=== PATIENT | female | born 1960 | race Caucasian/White ===

== ENCOUNTER 2020-05-20 19:36 | Emergency (ER) | payer SELFPAY ==
--- NOTE | 2020-05-20 20:17 | EDPHYS ---
Physician Documentation [facility] Name: Qi Berry Age: 59 yrs Sex: Female : 1960 Arrival Date: 05/20/2020 Time: 19:38 Bed 20 Private MD: ED Physician Salvador Brinoes HPI: 05/20 20:11 This 59 yrs old Female presents to ER via Ambulatory with complaints of Chest chela pain from fall. 20:11 The patient or guardian reports chest pain that is located primarily in the anterior chela chest wall. Onset: The symptoms/episode began/occurred 4 day(s) ago. The pain does not radiate. Associated signs and symptoms: Pertinent positives:. The chest pain is described as aching, sharp. Duration: The patient or guardian reports a single episode, that is still ongoing. Modifying factors: The symptoms are alleviated by remaining still, the symptoms are aggravated by deep breath, movement, palpation of area, twisting torso. Severity of pain: At its worst the pain was mild moderate in the emergency department the pain is unchanged. The patient has not experienced similar symptoms in the past. Historical: - Allergies: 19:45 No Known Allergies; ll1 - PSHx: 19:45 tubal ; ll1 - Immunization history:: Flu vaccine is not up to date. - Social history:: Smoking status: Patient denies any tobacco usage or history of. Patient/guardian denies using alcohol, street drugs, tobacco products. - Family history:: not pertinent. ROS: 20:11 Constitutional: Negative for fever, chills, and weight loss, Eyes: Negative for injury, chela pain, redness, and discharge, ENT: Negative for injury, pain, and discharge, Neck: Negative for injury, pain, and swelling, Cardiovascular: Negative for chest pain, palpitations, and edema, Respiratory: Negative for shortness of breath, cough, wheezing, and pleuritic chest pain, Abdomen/GI: Negative for abdominal pain, nausea, vomiting, diarrhea, and constipation, Back: Negative for injury and pain, : Negative for injury, bleeding, discharge, and swelling, MS/Extremity: Negative for injury and deformity, Skin: Negative for injury, rash, and discoloration, Neuro: Negative for headache, weakness, numbness, tingling, and seizure, Psych: Negative for depression, anxiety, suicide ideation, homicidal ideation, and hallucinations, Allergy/Immunology: Negative for hives, rash, and allergies, Endocrine: Negative for neck swelling, polydipsia, polyuria, polyphagia, and marked weight changes, Hematologic/Lymphatic: Negative for swollen nodes, abnormal bleeding, and unusual bruising. 20:11 Cardiovascular: Positive for chest wall pain. Exam: 20:11 Constitutional: This is a well developed, well nourished patient who is awake, alert, chela and in no acute distress. Head/Face: Normocephalic, atraumatic. Eyes: Pupils equal round and reactive to light, extra-ocular motions intact. Lids and lashes normal. Conjunctiva and sclera are non-icteric and not injected. Cornea within normal limits. Periorbital areas with no swelling, redness, or edema. ENT: Nares patent. No nasal discharge, no septal abnormalities noted. Tympanic membranes are normal and external auditory canals are clear. Oropharynx with no redness, swelling, or masses, exudates, or evidence of obstruction, uvula midline. Mucous membranes moist. Neck: Trachea midline, no thyromegaly or masses palpated, and no cervical lymphadenopathy. Supple, full range of motion without nuchal rigidity, or vertebral point tenderness. No Meningismus. Cardiovascular: Regular rate and rhythm with a normal S1 and S2. No gallops, murmurs, or rubs. Normal PMI, no JVD. No pulse deficits. Respiratory: Lungs have equal breath sounds bilaterally, clear to auscultation and percussion. No rales, rhonchi or wheezes noted. No increased work of breathing, no retractions or nasal flaring. Abdomen/GI: Soft, non-tender, with normal bowel sounds. No distension or tympany. No guarding or rebound. No evidence of tenderness throughout. Back: No spinal tenderness. No costovertebral tenderness. Full range of motion. Skin: Warm, dry with normal turgor. Normal color with no rashes, no lesions, and no evidence of cellulitis. MS/ Extremity: Pulses equal, no cyanosis. Neurovascular intact. Full, normal range of motion. Neuro: Awake and alert, GCS 15, oriented to person, place, time, and situation. Cranial nerves II-XII grossly intact. Motor strength 5/5 in all extremities. Sensory grossly intact. Cerebellar exam normal. Normal gait. Psych: Awake, alert, with orientation to person, place and time. Behavior, mood, and affect are within normal limits. 20:11 Chest/axilla: Inspection: normal, no acute changes, Palpation: tenderness, that is mild, that is moderate, of the anterior aspect of right upper chest, anterior aspect of left upper chest, mid-sternal area, right breast and left breast, Axilla: are normal, no acute changes, Breasts: are normal, no acute changes, Lymph nodes: lymphadenopathy is not appreciated. 20:42 ECG was reviewed by the Attending Physician. [facility] Vital Signs: 19:43 BP 153 / 96; Pulse 81; Resp 17; Temp 97.1; Pulse Ox 99% ; Pain 10/10; ll1 MDM: 19:47 Patient medically screened. [facility] 20:11 Data reviewed: vital signs, nurses notes, EKG, radiologic studies, plain films. [facility] 20:17 Differential diagnosis: Blunt Chest Trauma Chest Wall Contusion Chest Wall Injury chela Pleural Effusion Pneumothorax Pulmonary Contusion Rib Fracture. Data interpreted: bus driver/monitor: rate is 81 beats/min, rhythm is normal sinus rhythm, Pulse oximetry: is not applicable for this patient encounter. Test interpretation: by ED physician or midlevel provider: ECG, plain radiologic studies. Counseling: I had a detailed discussion with the patient and/or guardian regarding: the historical points, exam findings, and any diagnostic results supporting the discharge/admit diagnosis, lab results, radiology results, the need for outpatient follow up, Medication response: Toradol partially relieved the patient's pain. Response to treatment: the patient's symptoms have markedly improved after treatment. ED course: explained results to the patient, with rest , take meds and follow up. . 05/20 20:11 Order name: Chest Pa And Lat (2 Views) XRAY [facility] 05/20 20:11 Order name: EKG; Complete Time: 20:12 [facility] 05/20 20:11 Order name: EKG - Nurse/Tech; Complete Time: 20:43 [facility] EC:42 Rate is 69 beats/min. Rhythm is regular. QRS [place] is Normal. [place] interval is normal. QRS chela interval is normal. QT interval is normal. No Q waves. T waves are Normal. No ST changes noted. Clinical impression: Normal ECG and No evidence of ischemia. Interpreted by me. Reviewed by me. Administered Medications: 20:41 Drug: TORadol 60 mg Route: IM; Site: right vastus lateralis; vc 20:55 Follow up: Response: No adverse reaction vc 20:41 Drug: [place] (7.5 mg-325 mg) 1 tabs Route: PO; vc 20:55 Follow up: Response: No adverse reaction vc Disposition: 05/20/20 20:16 Discharged to Home. Impression: Chest pain, unspecified - chest wall, Fall due to bumping against object. - Condition is Stable. - Discharge Instructions: Chest Wall Pain, Chest Wall Pain, [id number]. - Prescriptions for Ibuprofen 600 mg Oral Tablet - take 1 tablet by ORAL route every 8 hours As needed take with food; 21 tablet. Tylenol- Codeine #3 300-30 mg Oral Tablet - take 2 tablets by ORAL route every 6 hours As needed; 24 tablet. - Medication Reconciliation Form, Thank You Letter, Antibiotic Education, Prescription Opioid Use form. - Follow up: Private Physician; When: 5 - 6 days; Reason: Recheck today's complaints, Continuance of care, Re-evaluation by your physician. - Problem is new. - Symptoms have improved. Signatures: Dispatcher [employer] EDMS Salvador Briones MD MD cha Calcote, Vanessa, RN RN Emilia Carey RN RN ll1 Corrections: (The following items were deleted from the chart) 21:08 20:16 05/20/2020 20:16 Discharged to Home. Impression: Chest pain, unspecified - chest vc wall; Fall due to bumping against object. Condition is Stable. Forms are Medication Reconciliation Form, Thank You Letter, Antibiotic Education, Prescription Opioid Use. Follow up: Private Physician; When: 5 - 6 days; Reason: Recheck today's complaints, Continuance of care, Re-evaluation by your physician. Problem is new. Symptoms have improved. chela
--- NOTE | 2020-05-20 20:17 | ER ---
Nurse's Notes [facility] Name: Qi Berry Age: 59 yrs Sex: Female : 1960 Arrival Date: 05/20/2020 Time: 19:38 Bed 20 Private MD: Diagnosis: Chest pain, unspecified-chest wall;Fall due to bumping against object Presentation: 05/20 19:43 Chief complaint: Patient states: States she fell 9 days ago. Board broke underneath her ll1 feet. States her right elbow hit a post, and "ketan" into my chest area. Pain to mid chest started 5 days ago. No SOB. Coronavirus screen: Proceed with normal triage. Patient denies a cough. Patient denies shortness of breath or difficulty breathing. Patient denies measured and/or subjective temperature greater than 100.4F prior to today's visit. Patient denies travel on a cruise ship or to a country the [facility] currently lists as an affected area. Patient denies contact with known and/or suspected case of COVID-19. Ebola Screen: Patient denies travel to an Ebola-affected area in the 21 days before illness onset. Initial Sepsis Screen: Does the patient meet any 2 criteria? No. Patient's initial sepsis screen is negative. Risk Assessment: Do you want to hurt yourself or someone else? Patient reports no desire to harm self or others. Onset of symptoms was May 10, 2020. 19:43 Method Of Arrival: Ambulatory ll1 19:43 Acuity: JENNIFER 3 ll1 19:55 Initial Sepsis Screen: Does the patient have a suspected source of infection? No. vc Patient's initial sepsis screen is negative. Triage Assessment: 19:55 General: Appears in no apparent distress. uncomfortable, slender, Behavior is calm, vc cooperative, appropriate for age. Pain: Complains of pain in left breast and right breast and mid-sternal area and anterior aspect of left upper chest and anterior aspect of right upper chest Pain currently is 3 out of 10 on a pain scale. at worst was 10 out of 10 on a pain scale. Quality of pain is described as sharp, squeezing, Alleviated by medications, rest, Aggravated by increased activity, repositioning, taking deep breaths. Historical: - Allergies: 19:45 No Known Allergies; ll1 - PSHx: 19:45 tubal ; ll1 - Immunization history:: Flu vaccine is not up to date. - Social history:: Smoking status: Patient denies any tobacco usage or history of. Patient/guardian denies using alcohol, street drugs, tobacco products. - Family history:: not pertinent. Screenin:55 Abuse screen: Denies threats or abuse. Nutritional screening: No deficits noted. vc Tuberculosis screening: No symptoms or risk factors identified. Fall Risk Fall in past 12 months (25 points). No secondary diagnosis (0 pts). No IV (0 pts). Ambulatory Aid- None/Bed Rest/Nurse Assist (0 pts). Gait- Normal/Bed Rest/Wheelchair (0 pts) Mental Status- Oriented to own ability (0 pts). Total Pelletier Fall Scale indicates Low Risk Score (25-44 pts). Side Rails Up X 2 Family Present and informed to notify staff if they need to leave bedside. Assessment: 19:55 General: Appears in no apparent distress. uncomfortable, slender, Behavior is calm, vc cooperative, appropriate for age. Neuro: Level of Consciousness is awake, alert, obeys commands, Oriented to person, place, time, situation, Appropriate for age. Cardiovascular: Capillary refill < 3 seconds Patient's skin is warm and dry. Respiratory: Airway is patent Respiratory effort is even, unlabored, Respiratory pattern is regular, symmetrical. GI: No signs and/or symptoms were reported involving the gastrointestinal system. : No signs and/or symptoms were reported regarding the genitourinary system. Derm: Skin is intact, is healthy with good turgor, Skin temperature is warm. Musculoskeletal: Circulation, motion, and sensation intact. Range of motion: intact in all extremities. 20:55 Reassessment: Patient appears in no apparent distress at this time. Patient and/or vc family updated on plan of care and expected duration. Pain level reassessed. Patient is alert, oriented x 3, equal unlabored respirations, skin warm/dry/pink. Vital Signs: 19:43 BP 153 / 96; Pulse 81; Resp 17; Temp 97.1; Pulse Ox 99% ; Pain 10/10; ll1 ED Course: 19:38 Patient arrived in ED. es 19:45 Triage completed. ll1 19:46 Arm band placed on Patient placed in an exam room, on a stretcher. ll1 19:47 Salvador Briones MD is Attending Physician. [facility] 19:47 Mercedes Middleton, RN is Primary Nurse. vc 20:00 Placed in gown. Bed in low position. Call light in reach. Side rails up X 1. Adult w/ jp3 patient. Warm blanket given. Verbal reassurance given. Pulse ox on. NIBP on. 20:22 Chest Pa And Lat (2 Views) XRAY In Process Unspecified. EDMS 20:30 X-ray(s) taken. jp3 20:43 EKG done, by ED staff, reviewed by Salvador Briones MD. Patient maintains SpO2 saturation jp3 greater than 95% on room air. 21:07 No provider procedures requiring assistance completed. Patient did not have IV access vc during this emergency room visit. Administered Medications: 20:41 Drug: TORadol 60 mg Route: IM; Site: right vastus lateralis; vc 20:55 Follow up: Response: No adverse reaction vc 20:41 Drug: [place] (7.5 mg-325 mg) 1 tabs Route: PO; vc 20:55 Follow up: Response: No adverse reaction vc Outcome: 20:16 Discharge ordered by . chela 20:57 Discharged to home ambulatory, with family. vc 20:57 Condition: good 20:57 Discharge instructions given to patient, family, Instructed on discharge instructions, follow up and referral plans. medication usage, Demonstrated understanding of instructions, follow-up care, medications, Prescriptions given X 2. 20:57 Patient left the ED. vc Signatures: Dispatcher [employer] EDUT Salvador Briones MD MD cha Salyer, Edna es Pisarski, Jacob jp3 Mercedes Middleton, CHASITY RN Emilia Carey RN RN ll1 Corrections: (The following items were deleted from the chart) 21:09 21:08 Patient left the ED. vc vc
[2020-05-20] MEDS ORDERED: KETOROLAC 30 MG/ML INJ ONE (20:25)
[2020-05-20] MEDS ORDERED: HYDROCODONE/APAP 7.5/325 MG TAB ONE (20:25)
[2020-05-20 21:14] VITALS: BP 153/96; TEMP 97.1; O2SAT 99
--- NOTE | 2020-05-20 21:27 | RAD REPORT ---
EXAM DESCRIPTION: RAD - Chest Pa And Lat (2 Views) - 05/20/2020 8:25 pm CLINICAL HISTORY: PAIN, fall with chest pain COMPARISON: None TECHNIQUE: Frontal and lateral views of the chest were obtained. FINDINGS: The lungs are normal volume. No pulmonary contusion seen. Interstitial opacification is pr esent throughout the lung lai favored to be chronic interstitial disease. Edema or infiltrate are doubtful. No failure or volume overload. Heart size is normal and central vasculature is within nor mal limits. No pleural effusion or pneumothorax seen. No acute bone finding. Osteopenic changes are evident, prominent for patient age. Accentuated kyphosis noted. No aortic abnormality. IMPRESSION: Chronic interstitial lung disease is evident greater than typically seen for age. Osteopenic bony changes are evident greater than seen for age.
--- NOTE | 2020-05-21 06:21 | EKG ---
Test Date: 2020-05-20 Test Time: 20:31:26 Light Rail Vehicle Operator: ANGELA MEASUREMENT RESULTS: Intervals: Rate: 71 VA: QRSD: 102 QT: 436 QTc: 473 [place]: P: VA: QRS: 48 T: -4 INTERPRETIVE STATEMENTS: normal ecg No previous ECG available for comparison Electronically Signed On 05-21-20 06:20:12 CDT by David Aparicio
== END 2020-05-20 21:08 | disposition home or self-care (01) ==
LOC: ER 19:36
DX: R07.89 Other chest pain (principal); W18.00XA Striking against unspecified object with subsequent fall, initial encounter; Y93.9 Activity, unspecified; Y92.9 Unspecified place or not applicable
CPT/HCPCS: 71046; 93005; 96372; 99284

== ENCOUNTER 2020-09-07 08:25 | Emergency (ER) | payer SELFPAY ==
[2020-09-07] MEDS ORDERED: MECLIZINE HCL 12.5 MG TAB ONE (08:54)
[2020-09-07 09:03] LABS: Absolute Lymphocytes (CBC) 1.4 K/uL (0.7-4.9); Basophils % 1.4 % (0-1.3); Hematocrit 39.7 % (36.0-45.0); Lymphocytes % 35.5 % (15.3-44.8); MPV 8.9 fL (7.6-11.3)
[2020-09-07 09:05] LABS: Protime INR 0.99
[2020-09-07 09:13] LABS: Potassium 3.9 mmol/L (3.5-5.1)
[2020-09-07] MEDS ORDERED: NA CHLORIDE 0.9% 500 ML ONE (09:13)
--- NOTE | 2020-09-07 09:17 | RAD REPORT ---
EXAM DESCRIPTION: CT - Head Brain Wo Cont - 09/07/2020 9:10 am CLINICAL HISTORY: DIZZINESS COMPARISON: No comparisons TECHNIQUE: Axial 5 mm thick images of the head were obtained without IV contrast. All CT scans are performed using dose optimization technique as appropriate and may include automated exposure control or mA/KV adjustment according to patient size. FINDINGS: No intracranial hemorrhage, mass, edema or shift of mid-line structures. No acute infarcti on changes seen. No abnormal extra-axial fluid collections. Ventricles are normal. Mastoid air cells and visualized portions of the paranasal sinuses are clear. No acute bony findings. IMPRESSION: Negative non-contrast CT head examination.
--- NOTE | 2020-09-07 09:25 | EDPHYS ---
Physician Documentation [facility] Name: Qi Berry Age: 60 yrs Sex: Female : 1960 Arrival Date: 09/07/2020 Time: 08:27 Bed 5 Private MD: ED Physician Jefferson Bentley HPI: 09/07 08:40 This 60 yrs old Female presents to ER via Unassigned with complaints of rn Dizziness. 08:40 The patient presents with dizziness, sense of spinning. Onset: The symptoms/episode rn began/occurred 2 day(s) ago. Context: occurred at home, occurred while the patient was getting up from bed. Modifying factors: The symptoms are alleviated by closing eyes, holding head still, the symptoms are aggravated by movement of head, standing up, changing position. Severity of symptoms: At their worst the symptoms were moderate in the emergency department the symptoms have improved. The patient has not experienced similar symptoms in the past. Reports 2 days ago getting out of bed, felt dizzy and spinning, had to crawl to bathroom, worse with head turning and movement, no recent head injury, denies other focal neuro complaints, no vision changes, no speech changes. No chest pain/sob/abd pain/vomiting. Hasn't happened before. Feels much better today, denies current dizziness. . Historical: - Allergies: 08:56 No Known Allergies; jl7 - Home Meds: 08:56 None [Active]; jl7 - PMHx: 08:56 None; jl7 - PSHx: 08:56 Tubal ligation; jl7 - Immunization history:: Adult Immunizations up to date. - Social history:: Smoking status: Patient denies any tobacco usage or history of. - Family history:: not pertinent. - Hospitalizations: : No recent hospitalization is reported. ROS: 08:40 Constitutional: Negative for fever, chills, and weight loss, Eyes: Negative for injury, rn pain, redness, and discharge, Neck: Negative for injury, pain, and swelling, Cardiovascular: Negative for chest pain, palpitations, and edema, Respiratory: Negative for shortness of breath, cough, wheezing, and pleuritic chest pain, Abdomen/GI: Negative for abdominal pain, nausea, vomiting, diarrhea, and constipation, MS/Extremity: Negative for injury and deformity, Skin: Negative for injury, rash, and discoloration, Neuro: Negative for headache, weakness, numbness, tingling, and seizure. Exam: 08:40 Constitutional: This is a well developed, well nourished patient who is awake, alert, rn and in no acute distress. Ambulatory to room without difficulty or assistance. Head/Face: Normocephalic, atraumatic. Eyes: Pupils equal round and reactive to light, extra-ocular motions intact. Lids and lashes normal. Conjunctiva and sclera are non-icteric and not injected. Cornea within normal limits. Periorbital areas with no swelling, redness, or edema. Cardiovascular: Regular rate and rhythm. No pulse deficits. Respiratory: No increased work of breathing, no retractions or nasal flaring. Abdomen/GI: soft, non-tender Skin: Warm, dry with normal turgor. Normal color with no rashes, no lesions, and no evidence of cellulitis. MS/ Extremity: Pulses equal, no cyanosis. Neurovascular intact. Full, normal range of motion. Equal circumference. Neuro: Awake and alert, GCS 15, oriented to person, place, time, and situation. Cranial nerves II-XII grossly intact. Motor strength 5/5 in all extremities. Sensory grossly intact. Cerebellar exam normal. Normal gait. 08:46 ECG was reviewed by the Attending Physician. rn Vital Signs: 08:35 BP 146 / 90; Pulse 71; Resp 15; Temp 98.2; Pulse Ox 100% ; Pain 0/10; jl7 09:36 BP 139 / 66; Pulse 68; Resp 16; Pulse Ox 98% ; rb1 MDM: 08:32 Patient medically screened. rn 09:24 Differential diagnosis: CVA, generalized weakness, hypovolemia, idiopathic dizziness, rn TIA, vertigo. Differential diagnosis: cardiac arrhythmia. Data reviewed: vital signs, nurses notes, lab test result(s). Data reviewed: EKG, radiologic studies, CT scan, and as a result, I will discharge patient. Counseling: I had a detailed discussion with the patient and/or guardian regarding: the historical points, exam findings, and any diagnostic results supporting the discharge/admit diagnosis, lab results, radiology results, the need for outpatient follow up, to return to the emergency department if symptoms worsen or persist or if there are any questions or concerns that arise at home. Response to treatment: the patient's symptoms have markedly improved after treatment, and as a result, I will discharge patient. Special discussion: I discussed with the patient/guardian in detail that at this point there is no indication for admission to the hospital. It is understood, however, that if the symptoms persist or worsen the patient needs to return immediately for re-evaluation. 09/07 08:40 Order name: CBC with Diff; Complete Time: 09:11 rn 09/07 08:40 Order name: Basic Metabolic Panel; Complete Time: 09:16 rn 09/07 08:40 Order name: Protime (+inr); Complete Time: : rn 09/07 08:40 Order name: Ptt, Activated; Complete Time: : rn 09/07 08:40 Order name: CT Head Brain wo Cont; Complete Time: 09:24 rn 09/07 08:40 Order name: IV Start; Complete Time: 08:59 rn 09/07 08:40 Order name: EKG; Complete Time: 08:41 rn 09/07 08:40 Order name: EKG - Nurse/Tech; Complete Time: 08:46 rn EC:46 Rate is 67 beats/min. Rhythm is regular. QRS [place] is Normal. [place] interval is normal. QRS rn interval is normal. QT interval is normal. No Q waves. T waves are Normal. No ST changes noted. Clinical impression: Normal ECG. Interpreted by me. Reviewed by me. Administered Medications: 08:55 Drug: Meclizine 50 mg Route: PO; jl7 10:11 Follow up: Response: No adverse reaction; Marked relief of symptoms jl7 09:30 Drug: NS 0.9% 500 ml Route: IV; Rate: bolus; Site: right forearm; rb1 10:11 Follow up: Response: No adverse reaction; IV Status: Completed infusion; IV Intake: jl7 500ml Disposition: 09/07/20 09:25 Discharged to Home. Impression: Vertigo. - Condition is Stable. - Discharge Instructions: Benign Positional Vertigo, Vertigo. - Prescriptions for Meclizine 25 mg Oral Tablet - take 1 tablet by ORAL route every 8 hours As needed; 30 tablet. - Medication Reconciliation Form, Thank You Letter, Antibiotic Education, Prescription Opioid Use form. - Follow up: Private Physician; When: As needed; Reason: Recheck today's complaints, Re-evaluation by your physician. - Problem is new. - Symptoms have improved. Signatures: Dispatcher [employer] EDJefferson Muro MD MD rn Barber, Rebecca RN RN Alexandre Paulino RN RN jl7 Corrections: (The following items were deleted from the chart) 10:11 09:25 09/07/2020 09:25 Discharged to Home. Impression: Vertigo. Condition is Stable. jl7 Forms are Medication Reconciliation Form, Thank You Letter, Antibiotic Education, Prescription Opioid Use. Follow up: Private Physician; When: As needed; Reason: Recheck today's complaints, Re-evaluation by your physician. Problem is new. Symptoms have improved. rn
--- NOTE | 2020-09-07 09:25 | ER ---
Nurse's Notes [facility] Name: Qi Berry Age: 60 yrs Sex: Female : 1960 Arrival Date: 09/07/2020 Time: 08:27 Bed 5 Private MD: Diagnosis: Vertigo Presentation: 09/07 08:35 Chief complaint: Patient states: Intermittent dizziness started Friday, states "The jl7 room is spinning and I feel drunk.". 08:35 Coronavirus screen: Client denies travel out of the [place] in the last 14 days. At this jl7 time, the client does not indicate any symptoms associated with coronavirus-19. Ebola Screen: No symptoms or risks identified at this time. Initial Sepsis Screen: Does the patient meet any 2 criteria? No. Patient's initial sepsis screen is negative. Does the patient have a suspected source of infection? No. Patient's initial sepsis screen is negative. Risk Assessment: Do you want to hurt yourself or someone else? Patient reports no desire to harm self or others. Onset of symptoms was September 02, 2020. Care prior to arrival: None. Transition of care: patient was not received from another setting of care. 08:35 Method Of Arrival: Ambulatory jl7 08:35 Acuity: JENNIFER 3 jl7 Triage Assessment: 08:35 General: Appears in no apparent distress. uncomfortable, Behavior is calm, cooperative, jl7 appropriate for age. Pain: Denies pain. Neuro: Level of Consciousness is awake, alert, obeys commands, Oriented to person, place, time, situation, Domestic Travel Consultant are equal bilaterally Moves all extremities. Full function Gait is steady, Speech is normal, Facial symmetry appears normal, Intact Reports dizziness, intermittent. Cardiovascular: Denies chest pain, Patient's skin is warm and dry. Respiratory: Airway is patent Respiratory effort is even, unlabored, Respiratory pattern is regular, symmetrical, Denies shortness of breath. GI: Reports nausea, intermittent, none now Patient currently denies diarrhea, vomiting. : No signs and/or symptoms were reported regarding the genitourinary system. Derm: Skin is pink, warm \\T\\ dry. Historical: - Allergies: 08:56 No Known Allergies; jl7 - Home Meds: 08:56 None [Active]; jl7 - PMHx: 08:56 None; jl7 - PSHx: 08:56 Tubal ligation; jl7 - Immunization history:: Adult Immunizations up to date. - Social history:: Smoking status: Patient denies any tobacco usage or history of. - Family history:: not pertinent. - Hospitalizations: : No recent hospitalization is reported. Screenin:58 Abuse screen: Denies threats or abuse. Denies injuries from another. Nutritional jl7 screening: No deficits noted. Tuberculosis screening: No symptoms or risk factors identified. Fall Risk IV access (20 points). Total Pelletier Fall Scale indicates No Risk (0-24 pts). Assessment: 08:58 General: See triage assessment. jl7 09:00 Reassessment: Patient appears in no apparent distress at this time. Patient and/or jl7 family updated on plan of care and expected duration. Pain level reassessed. Patient is alert, oriented x 3, equal unlabored respirations, skin warm/dry/pink. Patient states feeling better. Patient states symptoms have improved. 09:45 Reassessment: Pt will be discharged once fluids are done infusing. jl7 Vital Signs: 08:35 BP 146 / 90; Pulse 71; Resp 15; Temp 98.2; Pulse Ox 100% ; Pain 0/10; jl7 09:36 BP 139 / 66; Pulse 68; Resp 16; Pulse Ox 98% ; rb1 ED Course: 08:27 Patient arrived in ED. as 08:32 Jefferson Bentley MD is Attending Physician. rn 08:35 Arm band placed on right wrist. jl7 08:46 Patient has correct armband on for positive identification. Placed in gown. Bed in low mh5 position. Call light in reach. Side rails up X 1. Warm blanket given. youth nutritional monitor on. Pulse ox on. NIBP on. 08:47 EKG done, by ED staff, reviewed by Jefferson Bentley MD. 5 08:50 Initial lab(s) drawn, by ar, sent to lab. Inserted saline lock: 20 gauge in right jl7 antecubital area, using aseptic technique. Blood collected. 08:54 Alexandre Sims, CHASITY is Primary Nurse. jl7 08:56 Triage completed. jl7 09:00 No provider procedures requiring assistance completed. jl7 09:10 CT Head Brain wo Cont In Process Unspecified. EDMS 10:11 IV discontinued, intact, bleeding controlled, No redness/swelling at site. Pressure jl7 dressing applied. Administered Medications: 08:55 Drug: Meclizine 50 mg Route: PO; jl7 10:11 Follow up: Response: No adverse reaction; Marked relief of symptoms jl7 09:30 Drug: NS 0.9% 500 ml Route: IV; Rate: bolus; Site: right forearm; rb1 10:11 Follow up: Response: No adverse reaction; IV Status: Completed infusion; IV Intake: jl7 500ml Intake: : IV: 500ml; Total: 500ml. jl7 Outcome: :25 Discharge ordered by . rn 10:11 Discharged to home ambulatory. jl7 10:11 Condition: stable 10:11 Discharge instructions given to patient, Instructed on discharge instructions, follow up and referral plans. medication usage, Demonstrated understanding of instructions, follow-up care, medications, Prescriptions given X 1. 10:11 Patient left the ED. jl7 Signatures: Dispatcher [employer] Eneida Yoder Roman, MD MD rn Barber, Rebecca, RN RN [facility] Marzena Ricci [facility] Alexandre Sims RN RN jl7 Corrections: (The following items were deleted from the chart) 10:11 09:00 IV discontinued, intact, bleeding controlled, No redness/swelling at site. jl7 Pressure dressing applied, jl7
[2020-09-07 10:19] VITALS: TEMP 98.2
[2020-09-07 10:21] VITALS: BP 139/66; O2SAT 98
== END 2020-09-07 10:11 | disposition home or self-care (01) ==
LOC: ER 08:25
DX: R42 Dizziness and giddiness (principal)
CPT/HCPCS: 36415; 70450; 80048; 85025; 85610; 85730; 93005; 96360; 99284; J7040

== ENCOUNTER 2025-01-18 14:45 | Emergency (ER) | payer OTHER ==
--- NOTE | 2025-01-18 15:58 | ER ---
Nurse's Notes [facility] Name: Qi Berry Age: 64 yrs Sex: Female : 1960 Arrival Date: 01/18/2025 Time: 14:45 Bed 20 Private MD: Diagnosis: Female genital prolapse, unspecified Presentation: 01/18 14:58 Chief complaint: Patient states: Pt reporting long object in vagina - "I have no idea ld1 what it was." Denies foreign object. States "I felt something weird and took a picture.". Coronavirus screen: At this time, the client does not indicate any symptoms associated with coronavirus-19. Ebola Screen: No symptoms or risks identified at this time. Initial Sepsis Screen: Does the patient meet any 2 criteria? No. Patient's initial sepsis screen is negative. Does the patient have a suspected source of infection? No. Patient's initial sepsis screen is negative. Risk Assessment: Do you want to hurt yourself or someone else? Patient reports no desire to harm self or others. Onset of symptoms was January 18, 2025. 14:58 Method Of Arrival: Ambulatory ld1 14:58 Acuity: JENNIFER 3 ld1 Triage Assessment: 15:02 General: Appears in no apparent distress. comfortable, Behavior is calm, cooperative, ld1 appropriate for age. Pain: Denies pain. EENT: No signs and/or symptoms were reported regarding the EENT system. Neuro: Level of Consciousness is awake, alert, obeys commands, Oriented to person, place, time, situation. Cardiovascular: Capillary refill < 3 seconds Patient's skin is warm and dry. Respiratory: Airway is patent Respiratory effort is even, unlabored. GI: Abdomen is round non-distended. : Reports Vaginal cyst Denies pain. Derm: No signs and/or symptoms reported regarding the dermatologic system. Musculoskeletal: No signs and/or symptoms reported regarding the musculoskeletal system. Historical: - Allergies: 15:02 No Known Allergies; ld1 - Home Meds: 15:02 None [Active]; ld1 - PMHx: 15:02 None; ld1 - PSHx: 15:02 None; ld1 - Immunization history:: Adult Immunizations up to date. - Infectious Disease History:: Denies. - Social history:: Smoking status: Patient denies any tobacco usage or history of. Vital Signs: 14:58 BP 144 / 83; Pulse 101; Resp 18; Temp 98.2(O); Pulse Ox 100% on R/A; Weight 77.11 kg; ld1 Height 5 ft. 9 in. ; Pain 0/10; 14:58 Body Mass Index 25.10 (77.11 kg, 175.26 cm) ld1 14:58 Pain Scale: Adult ld1 ED Course: 14:50 Patient arrived in ED. im 14:51 [facility] Zel[facility] kb 14:51 Jefferson Bentley MD is Attending Physician. kb 15:02 Triage completed. ld1 15:02 Arm band placed on right wrist. ld1 Administered Medications: No medications were administered Outcome: 15:58 Discharge ordered by . kb 18:26 Patient left the ED. hb Signatures: Niki Zelaya FNP-C FNP-Ckb Baxter, Heather, RN RN Taya Mccarthy RN RN ld1 Nuria Cruz im
--- NOTE | 2025-01-18 15:59 | EDPHYS ---
Physician Documentation [facility] [place] [place] Name: Qi Berry Age: 64 yrs Sex: Female : 1960 Arrival Date: 01/18/2025 Time: 14:45 Bed 20 Private MD: ED Physician Jefferson Bentley HPI: 01/18 18:16 This 64 yrs old Female presents to ER via Ambulatory with complaints of Foreign body In kb Vagina. 18:16 Patient is a 64-year-old female who presents for bulge out of vagina that she noticed kb today. Denies any pain, fever or other symptoms. . Historical: - Allergies: 15:02 No Known Allergies; ld1 - Home Meds: 15:02 None [Active]; ld1 - PMHx: 15:02 None; ld1 - PSHx: 15:02 None; ld1 - Immunization history:: Adult Immunizations up to date. - Infectious Disease History:: Denies. - Social history:: Smoking status: Patient denies any tobacco usage or history of. ROS: 18:16 Constitutional: As per HPI kb Exam: 18:16 Constitutional: This is a well developed, well nourished patient who is awake, alert, kb and in no acute distress. Head/Face: Normocephalic, atraumatic. ENT: Moist Mucous membranes Cardiovascular: Regular rate Respiratory: Respirations even and unlabored. No increased work of breathing. Talking in full sentences Abdomen/GI: Soft, non-tender. No distention Skin: Warm, dry with normal turgor. Normal color. MS/ Extremity: Pulses equal, no cyanosis. Neurovascular intact. Full, normal range of motion. Neuro: Awake and alert, GCS 15, oriented to person, place, time, and situation. 18:16 : Pelvic Exam: External exam: prolapse from vagina with straining, normal at rest, Vital Signs: 14:58 BP 144 / 83; Pulse 101; Resp 18; Temp 98.2(O); Pulse Ox 100% on R/A; Weight 77.11 kg; ld1 Height 5 ft. 9 in. ; Pain 0/10; 14:58 Body Mass Index 25.10 (77.11 kg, 175.26 cm) ld1 14:58 Pain Scale: Adult ld1 MDM: 14:51 Medical Screening Exam initiated kb 18:17 Differential diagnosis: uterine fibroids, prolapse, cyst. Data reviewed: vital signs, kb nurses notes. Counseling: I had a detailed discussion with the patient and/or guardian regarding the historical points, exam findings, and any diagnostic results supporting the discharge/admit diagnosis, the need for outpatient follow up, an OB/Gyne specialist, to return to the emergency department if symptoms worsen or persist or if there are any questions or concerns that arise at home. 18:18 Test considered but Not performed: Ultrasound US considered but pt has no pain, kb erythema, tenderness. 01/18 15:44 Order name: Misc. Order: place pt in gown please kb Administered Medications: No medications were administered Disposition: 01/19 15:03 Co-signature as Attending Physician, Jefferson Bentley MD I reviewed the patient's care rn provided by the Advanced Practice Provider and agree with the diagnosis and treatment plan. Disposition Summary: 01/18/25 15:58 Discharge Ordered Notes: Location: Home kb Condition: Stable kb Diagnosis - Female genital prolapse, unspecified kb Followup: kb - With: Emergency Department - When: As needed - Reason: Worsening of condition Followup: kb - With: Private Physician - When: 2 - 3 days - Reason: Recheck today's complaints, Continuance of care, Re-evaluation by your physician Discharge Instructions: - Discharge Summary Sheet kb - Pelvic Organ Prolapse kb Forms: - Medication Reconciliation Form kb - Antibiotic Education kb - Prescription Opioid Use kb - Patient Portal Instructions kb - Leadership Thank You Letter kb Signatures: Niki Zelaya, EVENT STAFF MEMBER-C EVENT STAFF MEMBER-Ckb Jefferson Bentley MD MD rn MccarthyTaya RN RN ld1
[2025-01-18 20:09] VITALS: BP 144/83; TEMP 98.2; O2SAT 100
== END 2025-01-18 18:26 | disposition home or self-care (01) ==
LOC: ER 14:45
DX: N81.9 Female genital prolapse, unspecified (principal)

== ENCOUNTER 2025-09-19 08:23 | Emergency (ER) | payer OTHER ==
[2025-09-19] MEDS ORDERED: TETRACAINE HCL 0.5% 4ML OPTH ONE (10:10)
[2025-09-19] MEDS ORDERED: FLUORESCEIN SODIUM 1 MG/WRAP ONE (10:10)
--- NOTE | 2025-09-19 10:30 | ER ---
Nurse's Notes [facility] Name: Qi Berry Age: 65 yrs Sex: Female : 1960 Arrival Date: 09/19/2025 Time: 08:23 Bed 12 Private MD: Diagnosis: Unspecified acute conjunctivitis, left eye;Anogenital (venereal) warts Presentation: 09/19 08:58 Chief complaint: Redness, pain, and and blurred vision in left eye x 1 week, and hb painful bumps on vulva for "a while". Coronavirus screen: At this time, the client does not indicate any symptoms associated with coronavirus-19. Ebola Screen: No symptoms or risks identified at this time. Initial Sepsis Screen: Does the patient meet any 2 criteria? No. Patient's initial sepsis screen is negative. Does the patient have a suspected source of infection? No. Patient's initial sepsis screen is negative. Risk Assessment: Do you want to hurt yourself or someone else? Patient reports no desire to harm self or others. Onset of symptoms is unknown. 08:58 Method Of Arrival: Ambulatory hb 08:58 Acuity: JENNIFER 4 hb Triage Assessment: 09:01 General: Appears in no apparent distress. Behavior is calm, cooperative. Pain: Pain hb currently is 5 out of 10 on a pain scale. Neuro: GCS 15. Cardiovascular: Patient's skin is warm and dry. Respiratory: Respiratory effort is even, unlabored, Respiratory pattern is regular, symmetrical. Historical: - Allergies: 08:59 No Known Allergies; hb - Home Meds: 08:59 None [Active]; hb - PMHx: 08:59 None; hb - PSHx: 08:59 None; hb - Immunization history:: Adult Immunizations up to date. - Infectious Disease History:: Denies. - Social history:: Smoking status: Patient denies any tobacco usage or history of. Screenin:22 [facility] ED Fall Risk Assessment (Adult) History of falling in the last 3 months, hb including since admission No falls in past 3 months (0 pts) Confusion or Disorientation No (0 pts) Intoxicated or Sedated No (0 pts) Impaired Gait No (0 pts) Mobility Assist Device Used No (0 pt) Altered Elimination No (0 pt) Score/Fall Risk Level 0 - 2 = Low Risk Oriented to surroundings, Maintained a safe environment, Educated pt \\T\\ family on fall prevention, incl call for assistance when getting out of bed. Abuse screen: Denies threats or abuse. Denies injuries from another. Nutritional screening: No deficits noted. Tuberculosis screening: No symptoms or risk factors identified. Assessment: 10:22 Reassessment:. General: See triage assessment . hb Vital Signs: 08:58 BP 170 / 79; Pulse 73; Resp 16; Pulse Ox 100% on R/A; Weight 68.04 kg; Height 5 ft. 6 hb in. ; Pain 5/10; 08:58 Body Mass Index 24.21 (68.04 kg, 167.64 cm) hb 08:58 Pain Scale: Adult hb ED Course: 08:26 Patient arrived in ED. al6 08:27 Corey Figueroa FNP-C is [facility]. hb 08:27 Wes Mitchell MD is Attending Physician. hb 08:59 Triage completed. hb 09:01 Arm band placed on. hb 10:22 Cher Silva RN is Primary Nurse. hb 10:22 Patient has correct armband on for positive identification. Call light in reach. hb Provided Education on: call light . 10:22 Assist provider with pelvic exam:. Patient did not have IV access during this emergency hb room visit. Administered Medications: 10:22 Drug: Tetracaine Ophthalmic Drops 0.5 % 1 drops Ophthalmic once Route: Ophthalmic; hb Site: left eye; 10:37 Follow up: Response: No adverse reaction hb Medication: 10:22 VIS not applicable for this client. hb Outcome: 10:30 Discharge ordered by MD. dr5 10:37 Discharged to home ambulatory, hb 10:37 Condition: stable 10:37 Discharge instructions given to patient, Instructed on discharge instructions, follow up and referral plans. medication usage, Demonstrated understanding of instructions, follow-up care, medications, Prescriptions given X 1, 10:37 Patient left the ED. hb Signatures: Cher Silva RN RN Corey Figueroa FNP-C [employer]-Cdr5 Lidia Ceja al6 Corrections: (The following items were deleted from the chart) 09:00 08:58 Pulse 73bpm; Resp 16bpm; Pulse Ox 100% RA; 68.04 kg; Height 5 ft. 6 in.; BMI: hb 24.2; Pain 5/10, Adult; hb 09:42 08:58 BP 17 / 79; Pulse 73bpm; Resp 16bpm; Pulse Ox 100% RA; 68.04 kg; Height 5 ft. 6 hb in.; BMI: 24.2; Pain 510, Adult; hb 10:28 10:22 No provider procedures requiring assistance completed. hb hb
--- NOTE | 2025-09-19 10:30 | EDPHYS ---
Physician Documentation [facility] Name: Qi Berry Age: 65 yrs Sex: Female : 1960 Arrival Date: 09/19/2025 Time: 08:23 Bed 12 Private MD: ED Physician Wes Mitchell HPI: 09/19 09:27 This 65 yrs old Female presents to ER via Ambulatory with complaints of dr5 Blurred Vision, vag problem. 09:27 Onset: The symptoms/episode began/occurred acutely, suddenly. Patient is a 65-year-old dr5 female with no past medical history coming in with left eye pain, redness, matting of eyes, intermittent blurry vision from tearing for the past week. Patient also reports she has issues in her vaginal area and states I have bumps come and go. Patient denies new sexual partners. Patient denies abdominal pain, nausea, vomiting, or fever.. Historical: - Allergies: 08:59 No Known Allergies; hb - Home Meds: 08:59 None [Active]; hb - PMHx: 08:59 None; hb - PSHx: 08:59 None; hb - Immunization history:: Adult Immunizations up to date. - Infectious Disease History:: Denies. - Social history:: Smoking status: Patient denies any tobacco usage or history of. ROS: 09:49 Constitutional: as per hpi dr5 Exam: 09:49 CT study not indicated or reported. Reason for not performing CT: Not indicated at this dr5 time 09:49 Constitutional: This is a well developed, well nourished patient who is awake, alert, and in no acute distress. Head/Face: Normocephalic, atraumatic. 09:49 ENT: Nares patent. No nasal discharge, no septal abnormalities noted. Tympanic membranes are normal and external auditory canals are clear. Oropharynx with no redness, swelling, or masses, exudates, or evidence of obstruction, uvula midline. Mucous membranes moist. Neck: Trachea midline, no thyromegaly or masses palpated, and no cervical lymphadenopathy. Supple, full range of motion without nuchal rigidity, or vertebral point tenderness. No Meningismus. Chest/axilla: Normal chest wall appearance and motion. Nontender with no deformity. No lesions are appreciated. Cardiovascular: Regular rate and rhythm with a normal S1 and S2. Normal PMI, no JVD. No pulse deficits. Respiratory: Lungs have equal breath sounds bilaterally, clear to auscultation. No rales, rhonchi or wheezes noted. No increased work of breathing, no retractions or nasal flaring. Back: No spinal tenderness. No costovertebral tenderness. Full range of motion. MS/ Extremity: Pulses equal, no cyanosis. Neurovascular intact. Full, normal range of motion. Neuro: Awake and alert, GCS 15, oriented to person, place, time, and situation. Cranial nerves II-XII grossly intact. Motor strength 5/5 in all extremities. Sensory grossly intact. Cerebellar exam normal. Normal gait. 09:49 Eyes: Periorbital structures: appear normal, no acute changes, Pupils: no acute changes, equal, round, and reactive to light and accomodation, Extraocular movements: intact throughout, Conjunctiva: exudate, in the left eye, injected, in the left eye, tearing noted, in left eye, Corneas: are normal, no acute changes, Sclera: no appreciated abnormality, no acute changes, 10:24 Eyes: Intraocular pressure: left eye = 8mmHg, No foreign body or corneal abrasions in dr5 fluorescein exam. 10:38 : Pelvic Exam: External exam: warts noted, CHASITY Kwon was present during exam., dr5 Vital Signs: 08:58 BP 170 / 79; Pulse 73; Resp 16; Pulse Ox 100% on R/A; Weight 68.04 kg; Height 5 ft. 6 hb in. ; Pain 5/10; 08:58 Body Mass Index 24.21 (68.04 kg, 167.64 cm) hb 08:58 Pain Scale: Adult hb Procedures: 10:24 Eye Exam: Fluorescein strip used. dr5 MDM: 08:34 Medical Screening Exam initiated dr5 10:38 Differential diagnosis: Acuminata condyloma, herpes simplex virus, conjunctivitis, dr5 glaucoma, corneal abrasion, scleritis. Data reviewed: vital signs, nurses notes. Consideration of Admission/Observation Escalation of care including admission/observation considered. Escalation considered patient found to have acute close glaucoma. I considered the following discharge prescriptions or medication management in the emergency department I discussed and recommended Over The Counter medications, Medications were administered in the Emergency Department. See MAR. Test considered but Not performed: CT: CT scan considered but patient has external warts which explain patient's current complaint.. Care significantly affected by the following Social Determinants of Health: Poor access to healthcare and/or lack of insurance, Poor access to transportation, Problems related to employment. Counseling: I had a detailed discussion with the patient and/or guardian regarding the historical points, exam findings, and any diagnostic results supporting the discharge/admit diagnosis, the presence of at least one elevated blood pressure reading (>120/80) during this emergency department visit, the need for outpatient follow up, for definitive care, a family practitioner, to return to the emergency department if symptoms worsen or persist or if there are any questions or concerns that arise at home. Medication response: Tetracaine. Response to treatment: the patient's symptoms have resolved after treatment. Special discussion: I discussed with the patient/guardian in detail that at this point there is no indication for admission to the hospital. It is understood, however, that if the symptoms persist or worsen the patient needs to return immediately for re-evaluation. Based on the history and exam findings, there is no indication for further emergent testing or inpatient evaluation. I discussed with the patient/guardian the need to see the primary care provider for further evaluation of the symptoms. ED course: Patient reports she does not have insurance is not able to see a primary care doctor due to not having insurance. Patient has external acuminata condyloma and explained in detail that patient has high risk of having cervical cancer. Recommended patient follow primary care doctor and gynecology for well woman exam as well as regular blood work. Recommended patient go to my N. Printed out all resources for patient to take with her. All questions answered. Will give antibiotic eyedrops for left-sided conjunctivitis. Strict ER precautions given.. 09/19 09:02 Order name: Fluoresene Opth strip; Complete Time: 10:22 hb Administered Medications: 10:22 Drug: Tetracaine Ophthalmic Drops 0.5 % 1 drops Ophthalmic once Route: Ophthalmic; hb Site: left eye; 10:37 Follow up: Response: No adverse reaction hb Disposition Summary: 09/19/25 10:30 Discharge Ordered Notes: Location: Home dr5 Condition: Stable dr5 Diagnosis - Unspecified acute conjunctivitis, left eye dr5 - Anogenital (venereal) warts dr5 Followup: dr5 - With: Emergency Department - When: As needed - Reason: Worsening of condition Followup: dr5 - With: Private Physician - When: 1 - 2 days - Reason: Recheck today's complaints, Continuance of care, Re-evaluation by your physician Discharge Instructions: - Discharge Summary Sheet dr5 - Human Papillomavirus dr5 - Warts, [id number] dr5 - Bacterial Conjunctivitis, Adult, [id number] dr5 Forms: - Medication Reconciliation Form dr5 - Antibiotic Education dr5 - Patient Portal Instructions dr5 - Leadership Thank You Letter dr5 Prescriptions: - Ocuflox 0.3 % Ophthalmic drops - instill 2 drops OPHTHALMIC route every 6 hours for 7 days; 15 milliliter; dr5 Refills: 0, Product Selection Permitted Signatures: Cher Silva, RN RN Corey Chisholm, SUPERVISOR [employer]-C SUPERVISOR [employer]-Cdr5
[2025-09-19 13:53] VITALS: BP 170/79; O2SAT 100
== END 2025-09-19 10:37 | disposition home or self-care (01) ==
LOC: ER 08:23
DX: H10.32 Unspecified acute conjunctivitis, left eye (principal); A63.0 Anogenital (venereal) warts
CPT/HCPCS: 99283